=== PATIENT | male | born 1965 | race Hispanic/Latino ===

== ENCOUNTER 2017-12-15 11:17 | Emergency (ER) | payer OTHER ==
[~2017-12-15 11:17] MED LIST: AEC81 PO; FISH12002 PO; FLUT16H EN; PROSVENT PO; TYL3 PO; [UNRECOGNIZED DRUG - CODE] PO
[2017-12-15] MEDS ORDERED: GADOBENATE DIMEGLUMINE 20 ML IV ONE (14:30)
[2017-12-15] MEDS ORDERED: ASPIRIN 325 MG TABLET ONE (17:11)
== END 2017-12-15 17:32 | disposition home or self-care (01) ==
LOC: EDH 11:17
DX: R20.2 Paresthesia of skin (principal); E11.9 Type 2 diabetes mellitus without complications; E78.5 Hyperlipidemia, unspecified; I10 Essential (primary) hypertension; Z87.891 Personal history of nicotine dependence; Z88.8 Allergy status to other drugs, medicaments and biological substances
CPT/HCPCS: 70450; 70553; 82948; 93005; 99284; A9577